=== PATIENT | male | born 1950 | race Caucasian/White ===

== ENCOUNTER 2023-11-17 08:26 | Inpatient (IN) | payer MEDICARE, OTHER, SELFPAY ==
[2023-11-15 11:46] VITALS: BP 147/84
[2023-11-15 15:20] LABS: % Basophils 0.7 % (0-2); % Eosinophils 0.8 % (0-6); % Immature Granulocytes 0.2 % (0-0.5); % Lymphocytes 37.3 % (20.5-51.1); % Monocytes 10.7 % (1.7-9.3); % Neutrophils 50.3 % (42.2-75.2); Absolute Eosinophils 0.1 10^3/uL (0-0.7); Absolute Lymphocytes 2.3 10^3/uL (1.2-3.4); Absolute Monocytes 0.7 10^3/uL (0.1-0.6); Absolute Neutrophils 3.1 10^3/uL (1.4-6.5); Hematocrit 42.4 % (39.0-52.0); Hemoglobin 14.5 g/dL (13.0-18.0); Mean Corp Hgb Conc. 34.2 g/dL (33.0-37.0); Mean Corpuscular Hgb 31.4 pg (27.0-31.0); Mean Corpuscular Volume 91.8 fL (80.0-94.0); Mean Platelet Volume 10.2 fL (7.4-10.4); Nucleated Red Blood Cells % 0 % (-); Platelet Count 218 10^3/uL (130-400); Red Blood Cell Count 4.62 10^6/uL (4.70-6.10); Red Cell Dist. Width 13.7 % (11.5-14.5); White Blood Cell Count 6.1 10^3/uL (4.8-10.8)
--- NOTE | 2023-11-15 15:46 | ED.GENMED ---
History of Present Illness
General
Chief Complaint: Fall
Source: patient
Time Seen by Provider: 11/15/23 14:33
Travel History
Have you had any contact with someone who has COVID-19?: No
Do you have any symptoms of coronavirus? Fever > 100 degrees, chills, cough, shortness of breath, sore throat, loss of taste or smell, muscle aches, or headache?: No
History of Present Illness
History of Present Illness:
72-year-old male presenting to the emergency department for evaluation of multiple falls that have been occurring over the last few months but more so over the last week with patient noting he has fallen at least 5 or 6 times. His last fall
yesterday he notes he was having pain in his right great toe and right ankle which he believes is why he was falling. on one of his falls he did strike the front of his head but denies any loss consciousness, vomiting, visual changes prior
to falling he states that he normally does not feel lightheaded or dizzy but notes that at his primary care provider around a month or so ago when he was being evaluated for frequent falls it was noted that he had some orthostasis so had some of his
blood pressure medications changed around he denies any fevers or infectious symptoms, chest pain, shortness of breath, abdominal pain, nausea, vomiting or any other concerns. He does note ecchymosis to the great toe as well as around the heel. Of
note, patient lives on his own after his about 4 to 5 years ago but does note his daughter lives relatively close to him.
Past History
Past History
ED Past Medical History: HTN and Other (Atherosclerosis, neurogenic bladder)
ED Past Surgical History: Orthopedic and Other
Social History
Tobacco: Non-smoker
Alcohol: None
Drug: None
Personal:
Living: alone
Review of Systems
Review of Systems
All Other Systems: ROS reviewed and negative except as documented in HPI and ROS
Phy Exam
Physical Exam
Physical Exam:
GENERAL: Alert , in no apparent distress
Head: Normocephalic atraumatic
EYE: conjunctiva clear
NECK: Supple, no midline tenderness
ENT: o/p clr, mmm.
CARDIAC: Regular rate and rhythm, no murmur
LUNGS: Clear breath sounds bilaterally, no acute respiratory distress, no wheezes/rales/rhonchi
Abdomen: Soft, nontender, nondistended
NEUROLOGICAL: Alert and oriented x 3, no tremors with arms extended
SKIN: Warm and dry, skin intact. Contusion to the left great toe and older appearing ecchymosis to the medial calcaneus
MUSCULOSKELETAL: well perfused.
PSYCH: Normal and appropriate interaction.
Scores
Heart Failure Risk
Heart Failure Risk Score: Not Applicable
Heart Score for Chest Pain Patients
STEMI patient?: Not applicable
Withdrawal Assessment of Alcohol
Withdrawal Assessment Completed?: Not applicable
Course
Orders/Labs/Results
Orders:
Orders
11/15/23 14:34
CT Head W/o Iv Contrast Urgent
Comment:
Reason For Exam: frequent falls, head injury
CR Foot - Left Min 3 Views Urgent
Reason For Exam: great toe pain
PT Consult [Pt Eval And Treat] Urgent
Activity Level: Ambulate
11/15/23 14:51
Complete Blood Count/With Diff Urgent
11/15/23 14:54
Lyme Progressive Urgent
11/15/23 15:46
Case Management Consult ONCE
Case Management Consult: Discharge Planning
11/15/23 16:18
Basic Metabolic Panel Urgent
Urinalysis Reflex To Culture Urgent
Date Specimen was Collected: 11/15/23
Time Specimen was Collected: 16:12
11/15/23 16:58
Occupational Therapy Consult [Ot Eval And Treat] Urgent
Abnormal Lab Results
11/15/23 11/15/23
14:51 16:18
RBC 4.62 L 10^6/uL
(4.70-6.10)
MCH 31.4 H pg
(27.0-31.0)
Absolute Monos (auto) 0.7 H 10^3/uL
(0.1-0.6)
Monocytes % 10.7 H %
(1.7-9.3)
Sodium 132 L mmol/L
(135-145)
Chloride 97 L mmol/L
(98-107)
Glucose 129 H mg/dl
(70-99)
11/15/23 14:51
11/15/23 16:18
Vital Signs
Initial and Last Documented VS:
Initial Vital Signs
Temp Pulse Resp BP Pulse Ox
98.1 F 62 18 147/84 95
11/15/23 11:46 11/15/23 11:46 11/15/23 11:46 11/15/23 11:46 11/15/23 11:46
Last Documented Vital Signs
Temp Pulse Resp BP Pulse Ox
98.7 F 58 18 174/84 100
11/15/23 16:10 11/15/23 16:10 11/15/23 16:10 11/15/23 16:10 11/15/23 16:10
MDM/Problems Addressed
Differential Diagnosis Includes:
Ambulatory dysfunction, neuropathy, foot fracture, intracranial pathology
MDM/Problems Addressed:
72-year-old male presenting emergency department for evaluation of multiple falls that been occurring over the last few months but worse over the last week or so. Patient with head injury this past . No anticoagulants but also denies any
loss consciousness or significant headache. Patient noting left foot and heel pain. He does arrive with a cane which she reports using but still having significant falls with this. I do have clinical concern for patient's wellbeing and safety
given he lives on his own and is fallen at least 6 times within the last week. Will check a head CT as well as x-ray of the left foot. Lab work ordered to assess for any electrolyte disturbance. Will consult with physical therapy. Case
management will also likely be consulted as patient will likely need rehab.
*Radiology
Radiology exam reviewed: preliminary read by ED provider (No acute fracture of the foot, degenerative changes noted) and radiology read reviewed
*Pulse Oximetry
Patient hypoxic: no
*Critical Care Note
Total Time (30-74mins, 75-104mins- exclusive of procedures): Not Applicable
Patient Management
Discussion with other providers: Hospitalist
Escalation/DeEscalation of care consider admission/obs:
Patient seen by physical therapy and needed significant assistance while ambulating. They note he has a significant fall risk. Recommend rehab/SNF. Case management consulted and states they are unable to get the patient placed today and will need
admission for further placement. They are requesting Occupational Therapy be consulted as well. Hospitalist team is aware and accepts patient for continued evaluation and treatment.
ED Attending Note
-
Portions of this chart may have been created with voice recognition software.� Occasional wrong word or��sound alike� substitutions may have occurred due to the inherent limitations of voice recognition software.
Discharge Plan
Departure
Patient Disposition: Admit
Date of Disposition: 11/15/23
Time of Disposition: 17:02
Presentation/result/management discussed w/ accepting MD/DO: Hospitalist
Discharge Problem:
Ambulatory dysfunction, Frequent falls, Contusion of foot, right
Prescriptions:
No Action
aspirin 325 mg Tablet
325 mg PO DAILY@1630
tizanidine 4 mg tablet
4 mg PO DAILY@2100
Patient Comments:
11/15/2023: 'Take 1 hr before bed'
atenolol 25 mg tablet
25 mg PO DAILY
oxycodone-acetaminophen 10-325 mg tablet
1 tab PO QIDPRN PRN (Reason: chronic pain)
Patient Comments:
11/15/2023: last filled 10/21/23, 120 tabs for 30 days from [facility]
pantoprazole 40 mg tablet,delayed release (DR/EC)
40 mg PO DAILY
diazepam 10 mg tablet
10 mg PO HS
Patient Comments:
11/15/2023: last filled 08/21/23, 90 tabs for 90 days from [facility]
escitalopram oxalate 20 mg tablet
20 mg PO DAILY
rosuvastatin 20 mg tablet
20 mg PO DAILY@1630
bupropion HCl 300 mg tablet extended release 24 hr
300 mg PO DAILY
Referrals:
Bryon Chandler MD [Family Provider] -
Interventions
Interventions:
*Risk Screen - Suicide Last Done: 11/15/23 11:46
*General Assessment Last Done: 11/15/23 11:46
*Neglect/Abuse Screening Last Done: 11/15/23 11:46
*ED COVID-19 Vaccine History Last Done: 11/15/23 11:46
ED-Musculoskeletal Assessment Last Done: 11/15/23 13:07
ED- Neurological Assessment Last Done: 11/15/23 13:08
ED-Skin Assessment Last Done: 11/15/23 13:07
Discharge Date and Time
Print Language: PORTUGUESE
[2023-11-15 16:10] VITALS: BP 174/84
--- NOTE | 2023-11-15 16:33 | CM ---
Addendum entered by Kiana Long RN 11/15/23 16:59:
Spoke with pt he agrees with SNF. 'I have been falling and I dont feel safe going home'.Explained private pay SNF .He said he can not afford it. He was told he needs a 3 night in patient stay for Medicare to cover SNF stay.
Spoke with Kendy Underwood RN ED explained SNF can not be set up today. Requested MD order OT also.Will need to check if he qualifies for Medicare [employer] waiver program tomorrow.
Original Note:
Alert awake oriented patient who lives alone in a 1 story home with 2 step to enter and bed and bathroom on first floor. He is independent in driving and in all activities of daily living.His daughter Aicha lives near him. She said he has had many
falls recently.PT said Snf recommended. Aicha said he can not afford private pay Snf.Instructed dgt will not be able to place in rehab today.Pt will need OT eval too.Uses cane .
Pharmacy [facility] .
PCP DR Chandler
PLAN Will depend on OT eval.
[2023-11-15 16:44] LABS: Blood Urea Nitrogen 16 mg/dl (9-20); Calcium 9.4 mg/dl (8.4-10.2); Carbon Dioxide 23 mmol/L (22-30); Chloride 97 mmol/L (98-107); Glucose 129 mg/dl (70-99); Potassium 4.5 mmol/L (3.5-5.1); Sodium 132 mmol/L (135-145); eGFR > 60.00
[2023-11-15 16:45] LABS: Urine Albumin Trace (Neg - Trace); Urine Bilirubin Negative (Negative); Urine Character Clear (Clear); Urine Color Yellow; Urine Glucose Negative (Negative); Urine Ketone Negative (Negative); Urine Leukocyte Negative (Negative); Urine Nitrite Negative (Negative); Urine Occult Blood Negative (Negative); Urine Urobilinogen Negative (Neg - 1+)
--- NOTE | 2023-11-15 18:02 | HPS.HSE ---
Family Physician
-
Family Physician: Bryon Chandler
Chief Complaint
-
falls
History of Present Illness
72-year-old male past medical history of hypertension, Townsend's esophagus/GERD, chronic back pain, anxiety/depression, neurogenic bladder, presenting for multiple falls. He lives alone. He has had multiple falls over the past few months
particularly over the past week. He fell at least 5-6 times. After the last fall yesterday he was having pain and numbness in his left great toe particularly on the bottom for which he has been taking Percocet intermittently. On a prior fall on
he did hit the front of his head but denies loss of consciousness, vomiting or visual changes prior to falling. Patient does feel dizzy with the falls and 10 months ago when he saw his primary care physician he was found to be orthostatic
so his blood pressure medications were adjusted. He denies any fevers, chest pain or shortness of breath, abdominal pain or nausea or vomiting.
He does have pain in his head and neck from the fall.
Patient feels like he is not able to ambulate and bear weight on his left foot due to the pain of the left big toe. He gets short of breath and tired easily.
He also complains of dry eyes and pain behind his left eye. He had cataract surgery bilaterally 8 months ago.
He denies smoking or alcohol use.
Medical History
Past Medical History
Past Medical History: Reports Other (hypertension, Townsend's esophagus/GERD, chronic back pain, anxiety/depression, neurogenic bladder,)
Past Surgical History: Reports None
Social History
Tobacco: Non-smoker
Alcohol: None
Drug: None
Family History
Family History: Not pertinent
Allergies / Home Medications
Allergies reflects when Allergies were last updated in [facility].
Home Medications with original date entered in [facility]
Allergy/Medication List:
Allergies
Allergy/AdvReac Type Severity Reaction Status Date / Time
Penicillins Allergy Rash Verified 11/15/23 11:52
povidone-iodine Allergy Unknown Verified 11/15/23 11:52
[From Betadine]
dye Allergy Shortness Uncoded 11/15/23 11:52
of Breath
Home Medications
aspirin 325 mg tablet 325 mg PO DAILY@1630 11/15/23
atenolol 25 mg tablet 25 mg PO DAILY 11/15/23
bupropion HCl 300 mg 24 hr tablet, extended release 300 mg PO DAILY 11/15/23
diazepam 10 mg tablet 10 mg PO HS 11/15/23
escitalopram oxalate 20 mg tablet 20 mg PO DAILY 11/15/23
oxycodone-acetaminophen 10 mg-325 mg tablet 1 tab PO QIDPRN PRN chronic pain 11/15/23
pantoprazole 40 mg tablet,delayed release 40 mg PO DAILY 11/15/23
rosuvastatin 20 mg tablet 20 mg PO DAILY@16311/15/23
tizanidine 4 mg tablet 4 mg PO DAILY@2100 11/15/23
Review of Systems
-
History Source: Patient
A 12 point ROS was completed and negative except as noted: Yes
Constitutional: Reports No Symptoms
EENT: Reports No Symptoms
Respiratory: Reports No Symptoms
Cardiac: Reports No Symptoms
Abdomen/GI: Reports No Symptoms
: Reports No Symptoms
Musculoskeletal: Reports No Symptoms
Skin: Reports No Symptoms
Neurological: Reports No Symptoms
Endocrine: Reports No Symptoms
Hematologic/Lymphatic: Reports No Symptoms
Psych: Reports No Symptoms
Physical Exam
Vital Signs
Vital Signs
Temp Pulse Resp BP Pulse Ox
98.7 F 58 18 174/84 100
11/15/23 16:10 11/15/23 16:10 11/15/23 16:10 11/15/23 16:10 11/15/23 16:10
Physical Exam
General: Well Developed, Well Nourished and No Apparent Distress
HEENT: NormoCephalic, Moist mucous membranes and Atraumatic
Respiratory: Clear
Cardiac: S1/S2 and Regular Rhythm; No Murmur or Rub
GI: Soft, Non Tender, Non Distended and Normal Bowel Sounds; No Organomegaly
Rectal: Deferred by Provider
Musculoskeletal: No Clubbing, No Cyanosis and No Edema
Skin: No Rash
Neuro: Nonfocal/grossly intact
Laboratory Results
-
11/15/23 14:51
11/15/23 16:18
Data Reviewed
-
Lab Data: Labs Reviewed by me
Old Records: Reviewed
Impression/Plan
-
IMPRESSION:
PLAN:
# Frequent falls likely due to orthostatic hypotension
-Check orthostatic vital signs
-Blood pressure currently elevated due to left toe pain
-PT/OT, will likely need rehab
# Recent head injury
-CT head shows no acute abnormality
# Left big toe pain likely due to underlying osteoarthritis
-Foot x-ray does not show any injury and shows moderate first MTP joint osteoarthritis
-Outpatient follow-up with Ortho
-Continue Percocet as needed
#Dry eyes
#History of bilateral cataract surgery
-Artificial tears
Chronic back pain secondary to osteoarthritis
-Continue tizanidine
Essential hypertension
-Continue atenolol
Anxiety/depression
-Continue bupropion, Lexapro, diazepam
GERD
-Continue Protonix
Hyperlipidemia
-Continue statin
Full code
DVT prophylaxis�heparin
Regular diet
[2023-11-15 19:05] VITALS: BP 130/76; BP 170/82; BP 195/86; PULSE 57; PULSE 61; PULSE 67; BMI 24.0
--- NOTE | 2023-11-15 20:00 | PTCARENOTE ---
Rec'd patient from ED. Ambulated to bed with one assist and cane. c/o chronic back pain 8-02/07. SR in 70s on tele. Multiple abrasions ( scabbed) all through the body from prior falls. Patient has 'Home meds' mix of multiple meds and will send down
to pharmacy. POC reviewed with patient.
[2023-11-15] MEDS: REFRESH EYE DROPS (PF) 1 DROPS OPHTH (20:37)
[2023-11-15] MEDS: ZANAFLEX 4 MG PO (20:38)
[2023-11-15] MEDS: HEPARIN 5000 UNITS SC (20:38)
[2023-11-15] MEDS: ROXICODONE 10 MG PO (20:38)
[2023-11-15 22:47] VITALS: BP 108/66
[2023-11-15] MEDS: VALIUM 10 MG PO (22:49)
[2023-11-16] VITALS (9 sets, daily range): BP systolic 100–156; BP diastolic 61–84; PULSE 67–93
[2023-11-16] MEDS: ROXICODONE 10 MG PO ×3 (04:43→20:28)
[2023-11-16 07:11] LABS: % Basophils 0.6 % (0-2); % Eosinophils 1.5 % (0-6); % Immature Granulocytes 0.2 % (0-0.5); % Lymphocytes 44.2 % (20.5-51.1); % Monocytes 11.2 % (1.7-9.3); % Neutrophils 42.3 % (42.2-75.2); Absolute Eosinophils 0.1 10^3/uL (0-0.7); Absolute Lymphocytes 2.3 10^3/uL (1.2-3.4); Absolute Monocytes 0.6 10^3/uL (0.1-0.6); Absolute Neutrophils 2.2 10^3/uL (1.4-6.5); Hematocrit 40.4 % (39.0-52.0); Hemoglobin 13.8 g/dL (13.0-18.0); Mean Corp Hgb Conc. 34.2 g/dL (33.0-37.0); Mean Corpuscular Hgb 30.9 pg (27.0-31.0); Mean Corpuscular Volume 90.4 fL (80.0-94.0); Mean Platelet Volume 10.5 fL (7.4-10.4); Nucleated Red Blood Cells % 0 % (-); Platelet Count 192 10^3/uL (130-400); Red Blood Cell Count 4.47 10^6/uL (4.70-6.10); Red Cell Dist. Width 13.5 % (11.5-14.5); White Blood Cell Count 5.3 10^3/uL (4.8-10.8)
[2023-11-16 07:45] LABS: ALT (SGPT) 31 U/L (0-50); AST (SGOT) 28 U/L (17-59); Albumin 4.5 g/dl (3.5-5.0); Alkaline Phosphatase 86 U/L (38-126); Blood Urea Nitrogen 14 mg/dl (9-20); Calcium 9.2 mg/dl (8.4-10.2); Carbon Dioxide 26 mmol/L (22-30); Chloride 98 mmol/L (98-107); Estimated Creatinine Clearance 75 ml/min; Glucose 103 mg/dl (70-99); Potassium 4.3 mmol/L (3.5-5.1); Sodium 134 mmol/L (135-145); Total Bilirubin 1.1 mg/dl (0.2-1.3); Total Protein 7.1 g/dl (6.3-8.2); eGFR > 60.00
[2023-11-16] MEDS: HEPARIN 5000 UNITS SC ×2 (08:31→20:29)
[2023-11-16] MEDS: WELLBUTRIN XL (24 hour extended release) 300 MG PO (08:33)
[2023-11-16] MEDS: PROTONIX 40 MG PO (08:33)
[2023-11-16] MEDS: TENORMIN 25 MG PO (08:33)
[2023-11-16] MEDS: LEXAPRO 20 MG PO (08:33)
[2023-11-16 08:35] LABS: Hepatitis C Antibody Negative (Negative)
--- NOTE | 2023-11-16 11:38 | W.PN.HOSP.TC ---
Today's Communication/Plan
-
Monitor vitals
See plan
Continue monitor orthostatics
Teds
Check cortisol, TSH in morning
PT/OT
Assessment / Plan
Assessment / Plan
General: Well Developed, Well Nourished and No Apparent Distress
HEENT: NormoCephalic, Moist mucous membranes and Atraumatic
Respiratory: Clear
Cardiac: S1/S2 and Regular Rhythm; No Murmur or Rub
GI: Soft, Non Tender, Non Distended and Normal Bowel Sounds
Musculoskeletal: No Clubbing, No Cyanosis and No Edema
Neuro: Nonfocal/grossly intact
Frequent falls likely due to orthostatic hypotension
-Check orthostatic vital signs
teds
-PT/OT, will likely need rehab
check cortisol,TSH
# Recent head injury
-CT head shows no acute abnormality
mild hyponatremia
monitor
# Left big toe pain likely due to underlying osteoarthritis
-Foot x-ray does not show any injury and shows moderate first MTP joint osteoarthritis
-Outpatient follow-up with Ortho
-Continue Percocet as needed
#Dry eyes
#History of bilateral cataract surgery
-Artificial tears
Chronic back pain secondary to osteoarthritis and spinal stenosis
-Continue tizanidine
Essential hypertension
-Continue atenolol
Anxiety/depression
-Continue bupropion, Lexapro, diazepam
GERD
-Continue Protonix
Hyperlipidemia
-Continue statin
Full code
DVT prophylaxis�heparin
Anticipated Discharge: Within 24 hours
Subjective/Interval History
-
Date of Service: November 16, 2023
denies nausea
Objective Data
-
Labs:
Laboratory Results
11/16/23
06:36
WBC 5.3
Hgb 13.8
Hct 40.4
Plt Count 192
Sodium 134 L
Potassium 4.3
Chloride 98
Carbon Dioxide 26
BUN 14
Creatinine 0.9
Glucose 103 H
Calcium 9.2
Total Bilirubin 1.1
AST 28
ALT 31
Alkaline Phosphatase 86
Vital Signs:
Vital Signs
Temp Pulse Resp BP Pulse Ox
98.4 F 67 17 156/76 96
11/16/23 11:00 11/16/23 11:00 11/16/23 11:00 11/16/23 11:00 11/16/23 11:00
I&O
11/15/23 11/16/23 11/17/23
06:59 06:59 06:59
Intake Total 120 / 120
Output Total 350 / 350
Balance -230 / -230
[2023-11-16 14:55] LABS: Folate 9.1 ng/ml (2.76-20); Vitamin B12 232 pg/ml (239-931)
--- NOTE | 2023-11-16 15:43 | CM ---
Addendum entered by ANTONETTE Cintron 11/16/23 16:02:
Arlet from [facility] called and stated that they have no beds.
Original Note:
Reviewed chart. Spoke with Saira from [facility] who stated that patient is eligible for the [facility] Waiver. The facilities that accept this are: [facility], [facility], [facility] [place], Rehab at [facility].
Met with patient to update. Patient stated that he wants to go to [facility]. Explanation was provided that the waiver does not cover [facility]. Patient stated that he is going to call his congressmen. He was agreeable in the mean time for referrals
being sent to the above facilities.
Patient is also concerned about his BP.
Referrals sent to facilities that are covered by waiver. Will await determination and review options with patient.
Plan: Case management will continue to follow and assist with discharge planning. Transfer to a [facility] facility upon acceptance.
[2023-11-16] MEDS: TYLENOL 650 MG PO (16:07)
[2023-11-16] MEDS: REFRESH EYE DROPS (PF) 1 DROPS OPHTH ×2 (16:08→20:55)
[2023-11-16] MEDS: ASPIRIN 325 MG PO (16:08)
[2023-11-16] MEDS: CRESTOR 20 MG PO (16:08)
--- NOTE | 2023-11-16 16:26 | PTOTSP ---
Pt is still having symptomatic orthostatic hypotension despite knee-high TEDS stockings on. Pt is very upset about drop in BP and falls. Pt needs BP issue to be addressed before trying to send him to a rehab.
[2023-11-16] MEDS: VITAMIN B-12 1000 MCG PO (16:37)
[2023-11-16 18:33] LABS: Iron 145 ug/dl (49-181); Percent Saturation 41 % (20-50); Total Iron Binding Capacity 352 ug/dl (261-462)
[2023-11-16] MEDS: ZANAFLEX 4 MG PO (20:28)
[2023-11-16] MEDS: VALIUM 10 MG PO (22:20)
[2023-11-17 03:00] VITALS: BP 137/74
--- NOTE | 2023-11-17 03:46 | DOWNTIME ---
There was a [employer] Client Application Support Manager Downtime on 11/17/2023 from 0100 to 11/17/2023 at 0337. Downtime documentation of patient's care, including medication administrations, has been reconciled in the electronic record per guidelines. Refer to the
patient's paper chart under the miscellaneous tab to see printed paper medication records and downtime forms.
[2023-11-17 07:00] VITALS: BP 163/87
[2023-11-17] MEDS: TENORMIN 25 MG PO (07:47)
[2023-11-17] MEDS: ROXICODONE 10 MG PO ×2 (07:47→20:16)
[2023-11-17] MEDS: WELLBUTRIN XL (24 hour extended release) 300 MG PO (07:47)
[2023-11-17] MEDS: PROTONIX 40 MG PO (07:47)
[2023-11-17] MEDS: VITAMIN B-12 1000 MCG PO (07:47)
[2023-11-17] MEDS: LEXAPRO 20 MG PO (07:47)
[2023-11-17] MEDS: HEPARIN 5000 UNITS SC ×2 (07:48→20:17)
--- NOTE | 2023-11-17 09:48 | CM ---
Received message from Airam Espinoza CM, who stated that patient is now inpatient. Referral sent to [facility] in admissions is out this week, placed a call to [facility], and left message that referral is being sent. Will f/u if
no return call has been received.
Plan: Case management will continue to follow and assist with discharge planning. SNF when stable.
[2023-11-17 10:53] LABS: Cortisol, Random 13.8 ug/dl; TSH Reflex To Free T4 1.05 uIU/ml (0.47-4.68)
[2023-11-17 11:00] VITALS: BP 101/62; BP 119/66; BP 155/82; PULSE 67; PULSE 72; PULSE 78
--- NOTE | 2023-11-17 11:50 | W.PN.HOSP.TC ---
Today's Communication/Plan
-
Monitor vital signs and see plan
Check MRI brain
Monitor orthostatics
Continue with teds
Daughter updated over the phone
Continue with vitamin B12
Assessment / Plan
Assessment / Plan
General: Well Developed, Well Nourished and No Apparent Distress
HEENT: NormoCephalic, Moist mucous membranes and Atraumatic
Respiratory: Clear
Cardiac: S1/S2 and Regular Rhythm; No Murmur or Rub
GI: Soft, Non Tender, Non Distended and Normal Bowel Sounds
Musculoskeletal: No Clubbing, No Cyanosis and No Edema
Neuro: Nonfocal/grossly intact
Frequent falls likely due to orthostatic hypotension
-Check orthostatic vital signs positive
teds
-PT/OT, will likely need rehab
cortisol,TSH wnl
his resting BP are high so wont be much help if started on midodrine as that will increase his BP further
# Recent head injury
-CT head shows no acute abnormality
Anxiety/depression
-Continue bupropion, Lexapro, diazepam
suspect he is developing dementia; CT head with atrophy and cortical and cerebellar region
Check MRI
Vitamin B12 deficiency
Replete
mild hyponatremia
monitor
# Left big toe pain likely due to underlying osteoarthritis
-Foot x-ray does not show any injury and shows moderate first MTP joint osteoarthritis
-Outpatient follow-up with Ortho
-Continue Percocet as needed
#Dry eyes
#History of bilateral cataract surgery
-Artificial tears
Chronic back pain secondary to osteoarthritis and spinal stenosis
-Continue tizanidine
Essential hypertension
-Continue atenolol
GERD
-Continue Protonix
Hyperlipidemia
-Continue statin
Full code
DVT prophylaxis�heparin
Anticipated Discharge: 24 - 48 hours
Subjective/Interval History
-
Date of Service: November 17, 2023
denies pain
Objective Data
-
Vital Signs:
Vital Signs
Temp Pulse Resp BP Pulse Ox
98.9 F 67 18 155/82 96
11/17/23 11:00 11/17/23 11:00 11/17/23 11:00 11/17/23 11:00 11/17/23 11:00
I&O
11/16/23 11/17/23 11/18/23
06:59 06:59 06:59
Intake Total 120 / 120 1050 / 1050
Output Total 350 / 350 850 / 850
Balance -230 / -230 200 / 200
[2023-11-17] MEDS: TYLENOL 650 MG PO (12:22)
[2023-11-17 15:00] VITALS: BP 146/79
[2023-11-17] MEDS: ASPIRIN 325 MG PO (16:21)
[2023-11-17] MEDS: CRESTOR 20 MG PO (16:21)
[2023-11-17 19:00] VITALS: BP 100/67; BP 119/85; BP 163/87; PULSE 101; PULSE 80; PULSE 98
[2023-11-17] MEDS: ZANAFLEX PO (20:17)
[2023-11-17] MEDS: ZANAFLEX 4 MG PO (21:10)
[2023-11-17] MEDS: VALIUM 10 MG PO (21:11)
[2023-11-17 23:00] VITALS: BP 143/83
[2023-11-17] MEDS: REFRESH EYE DROPS (PF) 1 DROPS OPHTH (23:03)
[2023-11-18] VITALS (7 sets, daily range): BP systolic 112–167; BP diastolic 66–87; PULSE 66–79
[2023-11-18] MEDS: ROXICODONE 10 MG PO ×3 (02:55→17:03)
[2023-11-18] MEDS: TYLENOL 650 MG PO ×2 (05:58→12:20)
[2023-11-18] MEDS: HEPARIN 5000 UNITS SC ×2 (07:29→21:14)
[2023-11-18] MEDS: WELLBUTRIN XL (24 hour extended release) 300 MG PO (07:29)
[2023-11-18] MEDS: LEXAPRO 20 MG PO (07:29)
[2023-11-18] MEDS: TENORMIN 25 MG PO (07:29)
[2023-11-18] MEDS: PROTONIX 40 MG PO (07:29)
[2023-11-18] MEDS: VITAMIN B-12 1000 MCG PO (07:29)
[2023-11-18 08:03] LABS: Blood Urea Nitrogen 24 mg/dl (9-20); Calcium 9.2 mg/dl (8.4-10.2); Carbon Dioxide 25 mmol/L (22-30); Chloride 99 mmol/L (98-107); Estimated Creatinine Clearance 85 ml/min; Glucose 87 mg/dl (70-99); Potassium 4.5 mmol/L (3.5-5.1); Sodium 135 mmol/L (135-145); eGFR > 60.00
--- NOTE | 2023-11-18 10:25 | W.PN.HOSP.TC ---
Today's Communication/Plan
-
Monitor vital signs see plan
Add midodrine with holding parameters
PT/OT
might have to accept baseline high BP given orthostasis
Assessment / Plan
Assessment / Plan
General: Well Developed, Well Nourished and No Apparent Distress
HEENT: NormoCephalic, Moist mucous membranes and Atraumatic
Respiratory: Clear
Cardiac: S1/S2 and Regular Rhythm; No Murmur or Rub
GI: Soft, Non Tender, Non Distended and Normal Bowel Sounds
Musculoskeletal: No Clubbing, No Cyanosis and No Edema
Neuro: Nonfocal/grossly intact
Frequent falls likely due to orthostatic hypotension
suspect related to autonomic dysfunction
-Check orthostatic vital signs positive
teds
-PT/OT, will likely need rehab
cortisol,TSH wnl
midodrine with holding parameters
might have to accept baseline high BP given orthostasis
MRI with no acute infarct. Mild chronic microvascular white matter ischemic changes. Mild to moderate cortical atrophy
# Recent head injury
-CT head shows no acute abnormality
Anxiety/depression
-Continue bupropion, Lexapro, diazepam
suspect he is developing dementia; CT head with atrophy and cortical and cerebellar region
MRI with no acute infarct. Mild chronic microvascular white matter ischemic changes. Mild to moderate cortical atrophy
Vitamin B12 deficiency
Replete
mild hyponatremia
monitor
# Left big toe pain likely due to underlying osteoarthritis
-Foot x-ray does not show any injury and shows moderate first MTP joint osteoarthritis
-Outpatient follow-up with Ortho
-Continue Percocet as needed
#Dry eyes
#History of bilateral cataract surgery
-Artificial tears
Chronic back pain secondary to osteoarthritis and spinal stenosis
-Continue tizanidine
Essential hypertension
-Continue atenolol
GERD
-Continue Protonix
Hyperlipidemia
-Continue statin
Full code
DVT prophylaxis�heparin
Daughter updated 11/17/2023
Anticipated Discharge: Within 24 hours
Subjective/Interval History
-
Date of Service: November 18, 2023
denies pain
Objective Data
-
Labs:
Laboratory Results
11/18/23
06:45
Sodium 135
Potassium 4.5
Chloride 99
Carbon Dioxide 25
BUN 24 H
Creatinine 0.8
Glucose 87
Calcium 9.2
Vital Signs:
Vital Signs
Temp Pulse Resp BP Pulse Ox
97.6 F 61 16 167/82 96
11/18/23 07:00 11/18/23 07:29 11/18/23 07:00 11/18/23 07:29 11/18/23 07:37
I&O
11/17/23 11/18/23 11/19/23
06:59 06:59 06:59
Intake Total 1050 / 1050 720 / 720
Output Total 850 / 850 700 / 700
Balance 200 / 200
--- NOTE | 2023-11-18 10:30 | CM ---
Reviewed referral in [facility] stated that they do not have a contract with [facility]. Placed a call to JES[facility], to update that patient will be using Medicare which is his primary. Had to leave a voice mail message. Placed calls x2.
Will await for return call.
Plan: Case management will continue to follow and assist with discharge planning. Hopeful bed at [facility].
[2023-11-18] MEDS: ProAmatine 5 MG PO ×2 (12:20→17:04)
[2023-11-18 15:50] LABS: Lyme Antibody Screen, EIA Negative (Negative)
[2023-11-18] MEDS: CRESTOR 20 MG PO (17:04)
[2023-11-18] MEDS: ASPIRIN 325 MG PO (17:04)
[2023-11-18] MEDS: ZANAFLEX 4 MG PO (21:15)
[2023-11-18] MEDS: VALIUM 10 MG PO (21:15)
[2023-11-18] MEDS: REFRESH EYE DROPS (PF) 1 DROPS OPHTH (21:18)
[2023-11-19] VITALS (8 sets, daily range): BP systolic 106–172; BP diastolic 73–99; PULSE 69–89; O2SAT 93
[2023-11-19] MEDS: ROXICODONE 10 MG PO ×4 (00:46→23:22)
[2023-11-19 02:12] LABS: Transferrin 260 mg/dL (200-360)
[2023-11-19] MEDS: TYLENOL 650 MG PO ×2 (02:20→21:47)
[2023-11-19] MEDS: VITAMIN B-12 1000 MCG PO (08:36)
[2023-11-19] MEDS: ProAmatine 5 MG PO ×3 (08:37→17:00)
[2023-11-19] MEDS: TENORMIN 25 MG PO (08:37)
[2023-11-19] MEDS: WELLBUTRIN XL (24 hour extended release) 300 MG PO (08:37)
[2023-11-19] MEDS: LEXAPRO 20 MG PO (08:37)
[2023-11-19] MEDS: PROTONIX 40 MG PO (08:37)
[2023-11-19] MEDS: HEPARIN 5000 UNITS SC ×2 (08:43→21:37)
--- NOTE | 2023-11-19 10:04 | CM ---
Addendum entered by ANTONETTE Cintron 11/19/23 10:12:
Per [employer], available beds are: [facility], [facility].
Sent referrals to the following facilities: [facility], [facility], [facility], [facility], [facility]. If patient is medically stable for discharge tomorrow, he will have a 3 night qualifying stay through his Medicare.
If patient cleared today, Will update that he has two facilities from which to choose.
Original Note:
Placed a call to [facility] and spoke with Joseluis who is covering admissions. He stated that as patient is covered at 100 percent through Medicare days 1-20, they would be unable to accept him as his secondary is [employer] and they do not have a contract
with that insurance.
Per MD note, patient may be cleared for discharge today. Will review options with patient for facilities that can accept him, through the [employer] waiver.
Plan: Case management will continue to follow and assist with discharge planning. SNF when stable.
--- NOTE | 2023-11-19 11:14 | W.PN.HOSP.TC ---
Today's Communication/Plan
-
monitor vitals
See plan
give fioricet
Continue with midodrine
PT/OT
Might have to accept some high blood pressure given orthostasis; already on midodrine;TEDS. suspect this is from autonomic dysfunction
Assessment / Plan
Assessment / Plan
General: Well Developed, Well Nourished and No Apparent Distress
HEENT: NormoCephalic, Moist mucous membranes and Atraumatic
Respiratory: Clear
Cardiac: S1/S2 and Regular Rhythm; No Murmur or Rub
GI: Soft, Non Tender, Non Distended and Normal Bowel Sounds
Musculoskeletal: No Clubbing, No Cyanosis and No Edema
Neuro: Nonfocal/grossly intact
Frequent falls likely due to orthostatic hypotension
suspect related to autonomic dysfunction
-Check orthostatic vital signs positive
teds
-PT/OT, will likely need rehab
cortisol,TSH wnl
midodrine with holding parameters
might have to accept baseline high BP given orthostasis
MRI with no acute infarct. Mild chronic microvascular white matter ischemic changes. Mild to moderate cortical atrophy
# Recent head injury
-CT head shows no acute abnormality
Anxiety/depression
-Continue bupropion, Lexapro, diazepam
suspect he is developing dementia; CT head with atrophy and cortical and cerebellar region
MRI with no acute infarct. Mild chronic microvascular white matter ischemic changes. Mild to moderate cortical atrophy
Vitamin B12 deficiency
Replete
mild hyponatremia
monitor
# Left big toe pain likely due to underlying osteoarthritis
-Foot x-ray does not show any injury and shows moderate first MTP joint osteoarthritis
-Outpatient follow-up with Ortho
-Continue Percocet as needed
#Dry eyes
#History of bilateral cataract surgery
-Artificial tears
Chronic back pain secondary to osteoarthritis and spinal stenosis
-Continue tizanidine
Essential hypertension
-Continue atenolol
GERD
-Continue Protonix
Hyperlipidemia
-Continue statin
Full code
DVT prophylaxis�heparin
Daughter updated 11/17/2023
Anticipated Discharge: Within 24 hours
Subjective/Interval History
-
Date of Service: November 19, 2023
denies pain
Objective Data
-
Vital Signs:
Vital Signs
Temp Pulse Resp BP Pulse Ox
97.7 F 67 17 148/81 97
11/19/23 07:00 11/19/23 07:00 11/19/23 07:00 11/19/23 07:00 11/19/23 07:00
I&O
11/18/23 11/19/23 11/20/23
06:59 06:59 06:59
Intake Total 720 / 720 1080 / 1080
Output Total 700 / 700 575 / 575
Balance 505 / 505
[2023-11-19] MEDS: FIORICET 1 TAB PO ×2 (11:25→18:53)
--- NOTE | 2023-11-19 11:38 | PTCARENOTE ---
patient's frontal lobe headache 9/10 after PRN Oxycodone, right great toe and back pain 5/10. Fioricet administered as ordered, will continue to monitor.
--- NOTE | 2023-11-19 13:49 | PTCARENOTE ---
headache pain improved to 3/10 after Fioricet, will continue to monitor.
--- NOTE | 2023-11-19 15:39 | PTCARENOTE ---
patient refused orthostatic VS at 0700 and 1100 when attempted multiple times by both myself and SELVIN Jarrett; however, he was agreeable to having them done when working with OT. see OT therapy documentation, will continue to monitor.
[2023-11-19] MEDS: CRESTOR 20 MG PO (16:51)
[2023-11-19] MEDS: ASPIRIN 325 MG PO (16:51)
[2023-11-19] MEDS: ZANAFLEX 4 MG PO (21:37)
[2023-11-19] MEDS: VALIUM 10 MG PO (21:37)
[2023-11-20] VITALS (7 sets, daily range): BP systolic 96–172; BP diastolic 54–83; PULSE 66–77
[2023-11-20] MEDS: REFRESH EYE DROPS (PF) 1 DROPS OPHTH ×2 (00:21→21:08)
[2023-11-20] MEDS: FIORICET 1 TAB PO ×3 (06:37→22:12)
[2023-11-20] MEDS: TYLENOL 650 MG PO (09:32)
[2023-11-20] MEDS: ROXICODONE 10 MG PO ×2 (09:39→15:34)
[2023-11-20] MEDS: WELLBUTRIN XL (24 hour extended release) 300 MG PO (09:42)
[2023-11-20] MEDS: ProAmatine 5 MG PO ×2 (09:42→18:36)
[2023-11-20] MEDS: LEXAPRO 20 MG PO (09:43)
[2023-11-20] MEDS: PROTONIX 40 MG PO (09:43)
[2023-11-20] MEDS: VITAMIN B-12 1000 MCG PO (09:43)
[2023-11-20] MEDS: TENORMIN 25 MG PO (09:43)
[2023-11-20] MEDS: HEPARIN 5000 UNITS SC ×2 (09:44→21:07)
--- NOTE | 2023-11-20 11:20 | W.PN.HOSP.TC ---
Today's Communication/Plan
-
monitor vitals
see plan
Continue monitor orthostatics
Bladder scan
Continue midodrine
TEDS
pt/ot
dc planning
Assessment / Plan
Assessment / Plan
General: Well Developed, Well Nourished and No Apparent Distress
HEENT: NormoCephalic, Moist mucous membranes and Atraumatic
Respiratory: Clear
Cardiac: S1/S2 and Regular Rhythm; No Murmur or Rub
GI: Soft, Non Tender, Non Distended and Normal Bowel Sounds
Musculoskeletal: No Clubbing, No Cyanosis and No Edema
Neuro: Nonfocal/grossly intact
Frequent falls likely due to orthostatic hypotension
suspect related to autonomic dysfunction
-Check orthostatic vital signs positive; slowly numbers have been improving
teds
-PT/OT, will likely need rehab
cortisol,TSH wnl
midodrine with holding parameters
might have to accept baseline high BP given orthostasis
MRI with no acute infarct. Mild chronic microvascular white matter ischemic changes. Mild to moderate cortical atrophy
# Recent head injury
-CT head shows no acute abnormality
Anxiety/depression
-Continue bupropion, Lexapro, diazepam
suspect he is developing dementia; CT head with atrophy and cortical and cerebellar region
MRI with no acute infarct. Mild chronic microvascular white matter ischemic changes. Mild to moderate cortical atrophy
Vitamin B12 deficiency
Replete
mild hyponatremia
monitor
# Left big toe pain likely due to underlying osteoarthritis
-Foot x-ray does not show any injury and shows moderate first MTP joint osteoarthritis
-Outpatient follow-up with Ortho
-Continue Percocet as needed
#Dry eyes
#History of bilateral cataract surgery
-Artificial tears
Chronic back pain secondary to osteoarthritis and spinal stenosis
-Continue tizanidine
Essential hypertension
-Continue atenolol
GERD
-Continue Protonix
Hyperlipidemia
-Continue statin
Full code
DVT prophylaxis�heparin
Daughter updated 11/17/2023
Anticipated Discharge: Within 24 hours
Subjective/Interval History
-
Date of Service: November 20, 2023
Denies nausea
Objective Data
-
Vital Signs:
Vital Signs
Temp Pulse Resp BP Pulse Ox
98.2 F 65 16 123/65 96
11/20/23 07:00 11/20/23 07:00 11/20/23 07:00 11/20/23 07:00 11/20/23 08:30
I&O
11/19/23 11/20/23 11/21/23
06:59 06:59 06:59
Intake Total 1080 / 1080 2150 / 2150
Output Total 575 / 575 1025 / 1025
Balance 505 / 505 1125 / 1125
[2023-11-20] MEDS: ProAmatine PO (15:21)
[2023-11-20] MEDS: CRESTOR 20 MG PO (15:35)
[2023-11-20] MEDS: ASPIRIN 325 MG PO (15:35)
[2023-11-20] MEDS: ZANAFLEX 4 MG PO (21:07)
[2023-11-20] MEDS: VALIUM 10 MG PO (21:07)
[2023-11-21 03:00] VITALS: BP 139/71
[2023-11-21] MEDS: TYLENOL 650 MG PO ×2 (03:16→09:09)
[2023-11-21 07:00] VITALS: BP 160/82
[2023-11-21] MEDS: ROXICODONE 10 MG PO (09:08)
[2023-11-21] MEDS: PROTONIX 40 MG PO (09:14)
[2023-11-21] MEDS: ProAmatine PO (09:15)
[2023-11-21] MEDS: TENORMIN 25 MG PO (09:15)
[2023-11-21] MEDS: WELLBUTRIN XL (24 hour extended release) 300 MG PO (09:16)
[2023-11-21] MEDS: VITAMIN B-12 1000 MCG PO (09:16)
[2023-11-21] MEDS: LEXAPRO 20 MG PO (09:16)
[2023-11-21] MEDS: HEPARIN 5000 UNITS SC ×2 (09:17→21:04)
[2023-11-21] MEDS: FIORICET 1 TAB PO (10:20)
[2023-11-21 11:00] VITALS: BP 112/70; BP 128/59; BP 144/69; PULSE 67; PULSE 84
--- NOTE | 2023-11-21 11:03 | W.PN.HOSP.TC ---
Addendum entered and electronically signed by Jeanmarie Rodriguez MD 11/21/23 13:44:
Per keycase assembler, cannot be placed today.
Original Note:
Today's Communication/Plan
-
Monitor vital signs see plan
Pain control
PT/OT
Continue with midodrine, teds
Monitor orthostasis
Discharge planning, keycase assembler aware
Assessment / Plan
Assessment / Plan
General: Well Developed, Well Nourished and No Apparent Distress
HEENT: NormoCephalic, Moist mucous membranes and Atraumatic
Respiratory: Clear
Cardiac: S1/S2 and Regular Rhythm; No Murmur or Rub
GI: Soft, Non Tender, Non Distended and Normal Bowel Sounds
Musculoskeletal: No Clubbing, No Cyanosis and No Edema
Neuro: Nonfocal/grossly intact
Frequent falls likely due to orthostatic hypotension
suspect related to autonomic dysfunction
-Check orthostatic vital signs positive; slowly numbers have been improving
teds
-PT/OT, will likely need rehab
cortisol,TSH wnl
midodrine with holding parameters
might have to accept baseline high BP given orthostasis
MRI with no acute infarct. Mild chronic microvascular white matter ischemic changes. Mild to moderate cortical atrophy
# Recent head injury
-CT head shows no acute abnormality
Anxiety/depression
-Continue bupropion, Lexapro, diazepam
suspect he is developing dementia; CT head with atrophy and cortical and cerebellar region
MRI with no acute infarct. Mild chronic microvascular white matter ischemic changes. Mild to moderate cortical atrophy
Vitamin B12 deficiency
Replete
mild hyponatremia
monitor
# Left big toe pain likely due to underlying osteoarthritis
-Foot x-ray does not show any injury and shows moderate first MTP joint osteoarthritis
-Outpatient follow-up with Ortho
-Continue Percocet as needed
#Dry eyes
#History of bilateral cataract surgery
-Artificial tears
Chronic back pain secondary to osteoarthritis and spinal stenosis
-Continue tizanidine
Essential hypertension
-Continue atenolol
GERD
-Continue Protonix
Hyperlipidemia
-Continue statin
Full code
DVT prophylaxis�heparin
PT/OT rec SNF
Anticipated Discharge: Today
Subjective/Interval History
-
Date of Service: November 21, 2023
has pain at times
Objective Data
-
Vital Signs:
Vital Signs
Temp Pulse Resp BP Pulse Ox
97.6 F 63 16 160/82 96
11/21/23 07:00 11/21/23 07:00 11/21/23 07:00 11/21/23 07:00 11/21/23 07:00
I&O
11/20/23 11/21/23 11/22/23
06:59 06:59 06:59
Intake Total 2150 / 2150 1200 / 1200
Output Total 1025 / 1025 2000 / 2000
Balance 1125 / 1125 -800 / -800
--- NOTE | 2023-11-21 12:34 | CM ---
Per Attending, patient is stable for discharge; Met with patient to discuss DC plan; Patient refused SNF referrals ([facility]) that accepted him
[facility] Preferences [facility]
Patient has Medicare part A and part B; and [employer] for his supplemental plan.
I sent a response to [facility] via [employer]; and left a voice mail for Racheal [phone] At [facility]
CM will follow up with skilled bed sites tomorrow
[2023-11-21] MEDS: ProAmatine 5 MG PO ×2 (13:42→18:06)
[2023-11-21 15:00] VITALS: BP 146/75
[2023-11-21] MEDS: CRESTOR 20 MG PO (18:07)
[2023-11-21 19:00] VITALS: BP 159/89
[2023-11-21] MEDS: VALIUM 10 MG PO (21:05)
[2023-11-21] MEDS: ZANAFLEX 4 MG PO (21:05)
[2023-11-21 23:00] VITALS: BP 138/76
[2023-11-22] VITALS (8 sets, daily range): BP systolic 135–171; BP diastolic 77–103; PULSE 68–122
[2023-11-22] MEDS: ROXICODONE 10 MG PO ×2 (03:05→11:30)
[2023-11-22] MEDS: VITAMIN B-12 1000 MCG PO (09:07)
[2023-11-22] MEDS: ProAmatine PO ×2 (09:07→12:16)
[2023-11-22] MEDS: LEXAPRO 20 MG PO (09:08)
[2023-11-22] MEDS: TENORMIN 25 MG PO (09:08)
[2023-11-22] MEDS: PROTONIX 40 MG PO (09:08)
[2023-11-22] MEDS: HEPARIN 5000 UNITS SC ×2 (09:08→20:59)
[2023-11-22] MEDS: ASPIR LOW (ENTERIC COATED) 81 MG PO (09:08)
[2023-11-22] MEDS: WELLBUTRIN XL (24 hour extended release) 300 MG PO (09:08)
--- NOTE | 2023-11-22 09:24 | CM ---
Addendum entered by ANTONETTE Cintron 11/22/23 14:55:
Placed a call to Zonia in admissions at [facility] who stated that bed will not be available until tomorrow.
#for report [phone] and fax# [phone]
Spoke with patient to update. He called his daughter, Gwen, to update that she will need to give him a ride tomorrow.
Addendum entered by ANTONETTE Cintron 11/22/23 10:10:
Spoke with attending who stated that he will see patient today to confirm that he is still ready for discharge.
Original Note:
Reviewed chart, Patient medically cleared for discharge. Placed calls to facilities that said they could take patient for SNF: [facility], [facility], [facility], [facility], [facility].
Placed call left message for PT/OT office to determine if someone could evaluate patient.
Plan: Case management will continue to follow and assist with discharge planning. Transfer to SNF today.
[2023-11-22] MEDS: FIORICET 1 TAB PO (10:23)
--- NOTE | 2023-11-22 15:38 | W.PN.HOSP.TC ---
Today's Communication/Plan
-
Orthostasis improving.
Tolerates physical therapy.
Medically stable for discharge to long-term facility. Ongoing disposition efforts.
Assessment / Plan
Assessment / Plan
Frequent falls likely due to orthostatic hypotension
suspect related to autonomic dysfunction
-Check orthostatic vital signs positive; slowly numbers have been improving
teds
-PT/OT, will likely need rehab
cortisol,TSH wnl
midodrine with holding parameters
might have to accept baseline high BP given orthostasis
MRI with no acute infarct. Mild chronic microvascular white matter ischemic changes. Mild to moderate cortical atrophy
# Recent head injury
-CT head shows no acute abnormality
Anxiety/depression
-Continue bupropion, Lexapro, diazepam
suspect he is developing dementia; CT head with atrophy and cortical and cerebellar region
MRI with no acute infarct. Mild chronic microvascular white matter ischemic changes. Mild to moderate cortical atrophy
Vitamin B12 deficiency
Replete
mild hyponatremia
monitor
# Left big toe pain likely due to underlying osteoarthritis
-Foot x-ray does not show any injury and shows moderate first MTP joint osteoarthritis
-Outpatient follow-up with Ortho
-Continue Percocet as needed
#Dry eyes
#History of bilateral cataract surgery
-Artificial tears
Chronic back pain secondary to osteoarthritis and spinal stenosis
-Continue tizanidine
Essential hypertension
-Continue atenolol
GERD
-Continue Protonix
Hyperlipidemia
-Continue statin
Full code
DVT prophylaxis�heparin
PT/OT rec SNF
Anticipated Discharge: Within 24 hours
Subjective/Interval History
-
Date of Service: November 22, 2023
Objective Data
-
Vital Signs:
Vital Signs
Temp Pulse Resp BP Pulse Ox
98.2 F 68 18 169/82 96
11/22/23 11:05 11/22/23 12:16 11/22/23 11:05 11/22/23 12:16 11/22/23 11:05
I&O
11/21/23 11/22/23 11/23/23
06:59 06:59 06:59
Intake Total 1200 / 1200 1120 / 1120
Output Total 1999 / 1999 1375 / 1375
Balance -800 / -800 -255 / -255
Physical Exam
-
General: Well Developed and No Apparent Distress
HEENT: Normocephalic, Atraumatic and Moist Mucous Membranes
Respiratory: Clear to Auscultation
Cardiac: Regular Rhythm and S1/S2; Negative Murmur, Rub or Gallop
GI: Soft, Nontender, Nondistended and Normal Bowel Sounds; Negative Organomegaly
Rectal: Deferred by Provider
Musculoskeletal: No Clubbing, No Cyanosis and No Edema
Skin: Negative Rash
Neuro: Awake, Alert, Oriented, AO x 3 and Nonfocal/Grossly Intact
[2023-11-22] MEDS: CRESTOR 20 MG PO (17:17)
[2023-11-22] MEDS: ProAmatine 5 MG PO (17:17)
[2023-11-22] MEDS: VALIUM 10 MG PO (21:00)
[2023-11-22] MEDS: ZANAFLEX 4 MG PO (21:00)
[2023-11-23] MEDS: ROXICODONE 10 MG PO ×2 (01:20→16:50)
[2023-11-23 03:12] VITALS: BP 109/67
[2023-11-23 07:00] VITALS: BP 165/83
[2023-11-23] MEDS: ASPIR LOW (ENTERIC COATED) 81 MG PO (07:42)
[2023-11-23] MEDS: HEPARIN 5000 UNITS SC (07:42)
[2023-11-23] MEDS: PROTONIX 40 MG PO (07:42)
[2023-11-23] MEDS: VITAMIN B-12 1000 MCG PO (07:42)
[2023-11-23] MEDS: LEXAPRO 20 MG PO (07:42)
[2023-11-23] MEDS: WELLBUTRIN XL (24 hour extended release) 300 MG PO (07:42)
[2023-11-23] MEDS: ProAmatine PO (07:46)
[2023-11-23] MEDS: TENORMIN 25 MG PO (07:46)
[2023-11-23] MEDS: FIORICET 1 TAB PO (08:03)
[2023-11-23 11:00] VITALS: BP 150/84
--- NOTE | 2023-11-23 11:50 | W.DS.TRANS ---
DC Summary - Manager Battery
-
Discharge Instructions:
Discharge Diagnosis/Procedures Ambulatory dysfunction
Orthostatic hypotension
Suspect autonomic dysfunction
Suspect component of dementia
Vitamin B12 deficiency
Left big toe osteoarthritis
Spinal stenosis
Diet As tolerated
Activity As tolerated
Driving Restrictions As prior to admission
Bathing Restrictions None
Instructions:
Stand-Alone Forms:
Changes to Home Medications: Yes
Discharge Medications:
DC Medications w/original date entered in [employer]
atenolol 25 mg tablet 25 mg PO DAILY Blood Pressure 11/15/23
bupropion HCl 300 mg 24 hr tablet, extended release 300 mg PO DAILY Depression 11/15/23
escitalopram oxalate 20 mg tablet 20 mg PO DAILY Depression 11/15/23
pantoprazole 40 mg tablet,delayed release 40 mg PO DAILY Gastrointestinal Issue 11/15/23
rosuvastatin 20 mg tablet 20 mg PO DAILY@1630 High Cholesterol 11/15/23
tizanidine 4 mg tablet 4 mg PO DAILY@2100 Muscle Spasms 11/15/23
acetaminophen 325 mg tablet 650 mg (2 x 325 mg) PO Q6HPRN PRN mild pain/ fever>100.5F #30 tabs 11/23/23
aspirin 81 mg tablet,delayed release 81 mg PO DAILY #30 tabs 11/23/23
cyanocobalamin (vitamin B-12) 1,000 mcg tablet 1,000 mcg PO DAILY #30 tabs 11/23/23
diazepam 10 mg tablet 10 mg PO HS Mental Health/Anxiety #14 tabs 11/23/23
midodrine 5 mg tablet 5 mg PO TID@0800,1300,1800 #60 tabs 11/23/23
oxycodone-acetaminophen 10 mg-325 mg tablet 1 tab PO QIDPRN PRN chronic pain #14 tabs 11/23/23
Home Medication Changes
Midodrine added for symptomatic orthostasis.
Pending Results: No
--- NOTE | 2023-11-23 13:02 | CM ---
Reviewed chart, received message from attending that patient is medically cleared for discharge. Met with patient who confirmed that his daughter will pharmacy picking tech. IMM reviewed.
Plan: Case management will continue to follow and assist with discharge planning. Patient will go to [facility] today.
[2023-11-23] MEDS: ProAmatine 5 MG PO ×2 (13:11→16:49)
[2023-11-23 15:00] VITALS: BP 146/78
[2023-11-23] MEDS: CRESTOR 20 MG PO (16:50)
== END 2023-11-23 18:00 | DRG 74 ==
LOC: 3 WEST ACU 08:26
PROVIDERS: Internal Medicine; Physician Assistant Medical; ADMITTING PHYSICIAN Hospitalist; ATTENDING PHYSICIAN Internal Medicine; EMERGENCY PHYSICIAN Emergency Medicine; FAMILY PHYSICIAN Internal Medicine Geriatric Medicine
DX: G90.9 Disorder of the autonomic nervous system, unspecified (principal); E87.1 Hypo-osmolality and hyponatremia; I67.82 Cerebral ischemia; F03.90 Unspecified dementia, unspecified severity, without behavioral disturbance, psychotic disturbance, mood disturbance, and anxiety; G31.9 Degenerative disease of nervous system, unspecified; I10 Essential (primary) hypertension; F32.A Depression, unspecified; I95.1 Orthostatic hypotension; E78.5 Hyperlipidemia, unspecified; F41.9 Anxiety disorder, unspecified; G89.29 Other chronic pain; M47.9 Spondylosis, unspecified; M48.00 Spinal stenosis, site unspecified; M19.072 Primary osteoarthritis, left ankle and foot; H04.123 Dry eye syndrome of bilateral lacrimal glands; R29.6 Repeated falls; K21.9 Gastro-esophageal reflux disease without esophagitis; R51.9 Headache, unspecified; M54.2 Cervicalgia; W19.XXXA Unspecified fall, initial encounter; E53.8 Deficiency of other specified B group vitamins; Z79.82 Long term (current) use of aspirin; Z79.899 Other long term (current) drug therapy; Z91.81 History of falling
CPT/HCPCS: 70450; 70551; 73630; 80048; 80053; 81003; 82533; 82607; 82728; 82746; 83540; 83550; 84443; 84466; 85025; 86618; 86803; 97166; 97530; 99285